=== PATIENT | male | born 1975 | race Caucasian/White ===

== ENCOUNTER 2018-07-22 07:28 | Day surgery (SDC) | payer OTHER ==
--- NOTE | 2018-07-18 14:59 | RAD REPORT ---
EXAM DESCRIPTION: RAD - Chest Pa And Lat (2 Views) - 07/18/2018 2:53 pm CLINICAL HISTORY: preop Chest pain. COMPARISON: Chest Single View dated 05/13/2017 FINDINGS: The lungs are clear. The heart is normal in size. No displaced fractures. IMPRESSION: No acute or concerning finding suspected.
[2018-07-18 15:36] LABS: BUN Blood Urea Nitrogen 12 mg/dL (7-18); Bicarbonate 28 mmol/L (21-32); Glucose Level 251 mg/dL (74-106); Potassium 4.1 mmol/L (3.5-5.1); Sodium Level 135 mmol/L (136-145)
[2018-07-18 15:52] LABS: Absolute Monocytes 0.7 K/uL (0.1-1.3); Absolute Neutrophil 7.1 K/uL (1.8-8.0); Basophils % 1.2 % (0-1.3); Eosinophils % 2.4 % (0-4.4); Hematocrit 45.3 % (39.6-49.0); Lymphocytes % 19.3 % (15.3-44.8); MCH 29.6 pg (27.0-35.0); Monocytes % 7.2 % (3.3-12.3); RBC Red Blood Cell Count 5.27 M/uL (4.33-5.43)
--- NOTE | 2018-07-18 17:09 | EKG ---
Test Date: 2018-07-18 Test Time: 14:57:23 Ice Skater: [place] MEASUREMENT RESULTS: Intervals: Rate: 84 ND: 150 QRSD: 88 QT: 350 QTc: 413 [place]: P: 63 ND: 150 QRS: 14 T: 43 INTERPRETIVE STATEMENTS: Normal sinus rhythm Normal ECG Compared to ECG 05/13/2017 10:19:32 No significant changes Electronically Signed On 07-18-18 17:08:54 ELEMENTARY EDUCATION TUTOR by Dheeraj Ferrera
[2018-07-22] MEDS ORDERED: NA CHLORIDE 0.9% 1,000 ML ONE (07:48)
[2018-07-22] MEDS ORDERED: PROPOFOL 200 MG/20 ML VIAL IV ONE ×2 (08:35→10:06)
[2018-07-22] MEDS ORDERED: FENTANYL CITR 100 MCG/2 ML ONE ×2 (08:35→08:57)
[2018-07-22] MEDS ORDERED: MIDAZOLAM HCL 2 MG/2 ML INJ ONE ×2 (08:35→10:13)
[2018-07-22] MEDS ORDERED: LIDOCAINE 2% MPF 5 ML VIAL ONE ×2 (08:36→08:53)
[2018-07-22] MEDS ORDERED: GLYCOPYRROLATE 0.2 MG/ML SYR ONE ×2 (08:39)
[2018-07-22] MEDS ORDERED: NEOSTIGMINE 1 MG/ML -5 ML SYRINGE ONE (08:40)
[2018-07-22] MEDS ORDERED: ROCURONIUM 50 MG/5 ML VIAL IV ONE (08:42)
[2018-07-22] MEDS ORDERED: LIDOCAINE JELLY 2%- 5 ML TUBE ONE (08:52)
[2018-07-22] MEDS ORDERED: MEPERIDINE HCL 25 MG/0.5 ML ONE ×2 (09:26→10:13)
[2018-07-22] MEDS: NA CHLORIDE 0.9% 1,000 ML ONE ×2 (09:32→09:36)
--- NOTE | 2018-07-22 10:02 | P.BOP ---
Preoperative diagnosis: incarcerated incisional ventral hernia, morbid obesity Postoperative diagnosis: same Primary procedure: open repair of incarcerated incisional ventral hernia with mesh Division Traffic Superintendent: Sidra Perea (Tyra) Estimated blood loss: <20cc Specimen: gb Findings: as above, incarcerated omentum Anesthesia: General Complications: None Implants: ventralex mesh Transferred to: Recovery Room Condition: Good
[2018-07-22] MEDS ORDERED: SUCCINYLCHOLINE 20 MG/ML (10 ML) IV ONE (11:20)
[2018-07-22] MEDS ORDERED: HYDROCODONE/APAP 10/325 TAB ONE (11:29)
--- OUTSIDE RECORDS SUMMARY | 2018-07-22 12:54 | XMS REPORT ---
:1975 [facility] Address [address] [place] [address] Dr. Carvajal [address] [place] [id number] Care Team Providers Name Role Phone ZAN WHITLEY M. Unavailable Unavailable Problems This patient has no known problems. Allergies, Adverse Reactions, Alerts This patient has no known allergies or adverse reactions. Medications This patient has no known medications. Results Test Description Test Time Test Comments Text Results Atomic Results Result Comments MR, MRA, BRAIN, 2017-05-14 Reason for FINAL REPORT PATIENT WITHOUT CONTRAST 15:33:00 exam:->StrokeWhat is the ID: [id number] MRA head patient's sedation and neck without requirement?->No Sedation contrast INDICATION: Stroke TECHNIQUE: 2-D and 3-D [id number] MRA images of the intra- and extracranial carotid and vertebral artery circulations were obtained, from which maximal intensity projection reconstructions were generated. COMPARISON: None available FINDINGS: MRA neck:There is carotid bifurcation atherosclerosis with mild left cervical ICA origin stenosis of approximately 20%. No hemodynamically significant ICA stenosis is seen by NASCET criteria. The common carotid arteries demonstrate no significant stenosis. The vertebral artery origins are suboptimally depicted due to artifacts. Otherwise, there is antegrade flow in the cervical vertebral arteries without flow limitation. There are nonspecific enlarged bilateral cervical anterior and posterior triangle lymph nodes. Reactive changes are possible but other etiologies of lymphoid tissue enlargement cannot be excluded. MRA [place]:There is origin of the right posterior cerebral artery. There is no major branch occlusion or significant stenosis in the [place] vessels. There is infundibular origin of the left inferolateral trunk. IMPRESSION: 1. Carotid bifurcation atherosclerosis with mild left cervical ICA origin stenosis. 2. Suboptimally depicted vertebral artery origins. Otherwise, no significant vertebral artery stenosis seen. 3. No [place] major branch occlusion or significant stenosis. 4. Nonspecific enlarged cervical lymph nodes. Signed: Michael Lawrence MDReport Verified Date/Time: 05/14/2017 15:33:26 Reading Location: [address] Neuro Reading Room , MRA, NECK, 2017-05-14 FINAL REPORT PATIENT WITHOUT IV 15:33:00 ID: [id number] MRA head CONTRAST and neck without contrast INDICATION: Stroke TECHNIQUE: 2-D and 3-D [id number] MRA images of the intra- and extracranial carotid and vertebral artery circulations were obtained, from which maximal intensity projection reconstructions were generated. COMPARISON: None available FINDINGS: MRA neck:There is carotid bifurcation atherosclerosis with mild left cervical ICA origin stenosis of approximately 20%. No hemodynamically significant ICA stenosis is seen by NASCET criteria. The common carotid arteries demonstrate no significant stenosis. The vertebral artery origins are suboptimally depicted due to artifacts. Otherwise, there is antegrade flow in the cervical vertebral arteries without flow limitation. There are nonspecific enlarged bilateral cervical anterior and posterior triangle lymph nodes. Reactive changes are possible but other etiologies of lymphoid tissue enlargement cannot be excluded. MRA [place]:There is origin of the right posterior cerebral artery. There is no major branch occlusion or significant stenosis in the [place] vessels. There is infundibular origin of the left inferolateral trunk. IMPRESSION: 1. Carotid bifurcation atherosclerosis with mild left cervical ICA origin stenosis. 2. Suboptimally depicted vertebral artery origins. Otherwise, no significant vertebral artery stenosis seen. 3. No [place] major branch occlusion or significant stenosis. 4. Nonspecific enlarged cervical lymph nodes. Signed: Michael Lawrence MDReport Verified Date/Time: 05/14/2017 15:33:26 Reading Location: [address] Neuro Reading Room , BRAIN, 2017-05-14 Reason for FINAL REPORT PATIENT WITHOUT CONTRAST 15:28:00 exam:->StrokeLEFT ANT ID: [id number] MRI AURICLE EDEMA/MASSWhat is brain Comparison: the patient's sedation None Reason for exam: requirement?->No StrokeStroke Sedation Discussion: Multiplanar MR imaging the brain was performed using T1, T2, FLAIR, FFE, diffusion, and ADC map imaging. There are no intracranial hematomas, mass effect, hydrocephalus, shift, or extra-axial collections. There is T2 hyperintense signal heterogeneity involving the perirolandic suprasylvian region on the left. Hyperintensity on the DWI sequence is noted but without definitive diffusion restriction on ADC map. T2 shine through is presumed. There are no areas of abnormal diffusion restriction. Flow-voids are seen in the basilar and internal carotid arteries as well as in the large posterior dural sinuses. The pineal, sella, and craniocervical junction regions are unremarkable. The visualized orbital contents, paranasal sinuses, skullbase and surrounding soft tissues are unremarkable. . Impressions: Left-sided perirolandic patchy signal alterations, presumably ischemic in nature perhaps subacute in timeframe. If neurological signs, symptoms, and history suggests nonischemic disease, consider current postcontrast evaluation and/or MR imaging follow-up in 3-6 months. 2. No specific evidence of diffusion restricted event. Signed: Ronnie Alatorre Verified Date/Time: 05/14/2017 15:28:54 Reading Location: [facility] C0W Consult Reading Room -GLUCOSE METER 2017-05-14 13:32:00 Test Item Value Reference Range Comments POC-GLUCOSE METER (Introvision R&D) (test 152 mg/dL 70-110 TESTED AT [facility] [address] [facility] mfds=6979) [facility] [address] LIPID [id number] 05:04:00 Test Item Value Reference Range Comments TRIGLYCERIDES (BA InsightAKER) (test rjeg=497) 77 mg/dL CHOLESTEROL ([employer]&D) (test jcla=832) 153 mg/dL HDL CHOLESTEROL ([employer]&D) (test abss=605) 48 mg/dL LDL CHOLESTEROL CALCULATED ([employer]D) (test 90 mg/dL uvvu=468) Triglyceride Reference Range: Low Risk <150 Borderline 150- 199 High Risk 200-499 Very High Risk >=500Cholesterol Reference Range: Low Risk <200 Borderline 200-239 High Risk > 240HDL Cholesterol Reference Range: Low Risk >=60 High Risk <40LDL Cholesterol Reference Range: Optimal <100 Near Optimal 100-129 Borderline 130-159 High 160-189 Very High >=190 FastingBASIC METABOLIC [id number] 05:04:00 Test Item Value Reference Range Comments SODIUM (BEAKER) (test 135 meq/L 136-145 tffx=037) POTASSIUM (BEAKER) (test 4.7 meq/L 3.5-5.1 utsg=068) CHLORIDE (BEAKER) (test 102 meq/L 98-107 vryo=596) CO2 (BEAKER) (test 27 meq/L 22-29 xvjw=763) BLOOD UREA NITROGEN 12 mg/dL 7-21 (BEAKER) (test aizc=461) CREATININE (BEAKER) (test 0.88 mg/dL 0.57-1.25 dcwq=409) GLUCOSE RANDOM (BEAKER) 253 mg/dL 70-105 (test tpcq=459) CALCIUM (BEAKER) (test 8.9 mg/dL 8.4-10.2 qpmb=753) EGFR (BEAKER) (test 96 mL/min/1.73 sq m ESTIMATED GFR IS NOT zxfl=4934) ACCURATE CREATININE CLEARANCE IN PREDICTING GLOMERULAR FILTRATION RATE. ESTIMATED GFR IS NOT APPLICABLE FOR DIALYSIS PATIENTS. [id number] 04:38:00 Test Item Value Reference Range Comments RPR SCREEN (BEAKER) (test euxl=945) Nonreactive Nonreactive POCT-GLUCOSE [id number] 21:28:00 Test Item Value Reference Range Comments POC-GLUCOSE METER (BEAKER) 146 mg/dL 70-110 TESTED AT [facility] [address] [facility] (test ckbc=1021) [facility] [address] POCT-GLUCOSE [id number] 20:33:00 Test Item Value Reference Range Comments POC-GLUCOSE METER (BEAKER) 265 mg/dL 70-110 TESTED AT [place] [id number] [facility] (test ifvg=9796) [facility] [address] TSH/FREE T4 IF [id number] 17:24:00 Test Item Value Reference Range Comments THYROID STIMULATING HORMONE (BEAKER) (test 0.36 uIU/mL 0.35-4.94 gdce=342) CBC W/PLT COUNT & AUTO [id number] 17:01:00 Test Item Value Reference Range Comments WHITE BLOOD CELL COUNT (BEAKER) (test rifx=950) 15.0 K/ L 3.5-10.5 RED BLOOD CELL COUNT (BEAKER) (test hgww=533) 5.16 M/ L 4.63-6.08 HEMOGLOBIN (BEAKER) (test iiam=377) 14.5 GM/DL 13.7-17.5 HEMATOCRIT (BEAKER) (test ttyl=753) 45.1 % 40.1-51.0 MEAN CORPUSCULAR VOLUME (BEAKER) (test pfor=406) 87.4 fL 79.0-92.2 MEAN CORPUSCULAR HEMOGLOBIN (BEAKER) (test 28.1 pg 25.7-32.2 tldq=746) MEAN CORPUSCULAR HEMOGLOBIN CONC (BEAKER) (test 32.2 GM/DL 32.3-36.5 duwf=044) RED CELL DISTRIBUTION WIDTH (BEAKER) (test 13.6 % 11.6-14.4 xxzc=135) PLATELET COUNT (BEAKER) (test hrgf=483) 310 K/CU MM 150-450 MEAN PLATELET VOLUME (BEAKER) (test difb=415) 11.7 fL 9.4-12.4 NUCLEATED RED BLOOD CELLS (BEAKER) (test 0 /100 WBC 0-0 qdgh=973) NEUTROPHILS RELATIVE PERCENT (BEAKER) (test 80 % jesm=265) LYMPHOCYTES RELATIVE PERCENT (BEAKER) (test 13 % wqjr=495) MONOCYTES RELATIVE PERCENT (BEAKER) (test 6 % vsdu=056) EOSINOPHILS RELATIVE PERCENT (BEAKER) (test 0 % vglh=938) BASOPHILS RELATIVE PERCENT (BEAKER) (test 0 % taym=395) NEUTROPHILS ABSOLUTE COUNT (BEAKER) (test 12.02 K/ L 1.78-5.38 bexm=633) LYMPHOCYTES ABSOLUTE COUNT (BEAKER) (test 1.96 K/ L 1.32-3.57 vdtz=988) MONOCYTES ABSOLUTE COUNT (BEAKER) (test 0.91 K/ L 0.30-0.82 zxih=929) EOSINOPHILS ABSOLUTE COUNT (BEAKER) (test 0.03 K/ L 0.04-0.54 sqzl=319) BASOPHILS ABSOLUTE COUNT (BEAKER) (test 0.02 K/ L 0.01-0.08 kpvn=491) IMMATURE GRANULOCYTES-RELATIVE PERCENT (BEAKER) 0 % 0-1 (test haxe=2466)
--- OUTSIDE RECORDS SUMMARY | 2018-07-22 12:54 | XMS REPORT | Clinical Summary ---
:[address] [facility] Address [address] [place] [address] Care Team Providers Name Role Phone Catalina Primary Care Provider Allergies Active Allergy Reactions Severity Noted Date Comments Adhesive Tape Rash Low 05/13/2017 Medications Medication Sig Dispensed Refills Start Date End Date Status metFORMIN Take 1,000 mg by 0 Active (GLUCOPHAGE) 1000 mouth 2 (two) times MG daily with breakfast tabletIndications: and dinner. type 2 diabetes mellitus lisinopril Take 40 mg by mouth 0 Active (PRINIVIL,ZESTRIL) daily. 40 MG tabletIndications: hypertension insulin 70/30, Inject 30 Units 0 Active insulin subcutaneously daily NPH-insulin with breakfast. regular, (HUMULIN 70/30,NOVOLIN 70/30) 100 unit/mL (70-30) injectionIndicatio ns: type 1 diabetes mellitus insulin 70/30, Inject 15 Units 0 Active insulin subcutaneously daily NPH-insulin with dinner. regular, (HUMULIN 70/30,NOVOLIN 70/30) 100 unit/mL (70-30) injection aspirin 81 MG Take 1 tablet (81 mg 90 tablet 0 05/14/2017 05/14/2018 chewable tablet total) by mouth daily. atorvastatin Take 1 tablet (40 mg 90 tablet 0 05/14/2017 05/14/2018 (LIPITOR) 40 MG total) by mouth tablet nightly. Active Problems Problem Noted Date CVA (cerebral vascular accident) 05/13/2017 Slurred speech 05/13/2017 Diabetes mellitus type 1 05/13/2017 Essential hypertension 05/13/2017 Social History Tobacco Use Types Packs/Day Years Used Date Never Smoker Smokeless Tobacco: Never Used Sex Assigned at Date Recorded Not on file Job Start Date Occupation Industry Not on file Not on file Not on file Travel History Travel Start Travel End No recent travel history available. Last Filed Vital Signs Not on file Plan of Treatment Not on file Results Not on fileafter 07/21/2017 Insurance Payer Benefit Plan / Group Subscriber ID Type Phone Address [employer] - [employer] HMO POS QPOS xxxxxxxxxx HMO/POS Advance Directives For more information, please contact:[address] [phone] Code Status Date Activated Date Inactivated Comments Full Code 05/13/2017 3:45 PM 05/14/2017 6:59 PM This code status was determined by: Patient
--- NOTE | 2018-07-24 00:12 | OP ---
Date of Procedure: 07/22/2018 Surgeon: Britton Delgado MD Senior Maintenance Machinist: CATHY Flowers. Preoperative Diagnoses: Incarcerated incisional ventral hernia, morbid obesity. Postoperative Diagnoses: Incarcerated incisional ventral hernia, morbid obesity. Procedure: Open repair of incarcerated incisional ventral hernia with mesh. Estimated Blood Loss: Less than 20 cc. Specimen: Gallbladder. Finding: As above, incarcerated omentum. Anesthesia: General plus local. Complications: None. Implant: A Ventralex mesh. Indications: This is the case of a 43-year-old patient, comes to us with a tender incarcerated ventr al hernia. The patient has been trying to lose weight, avoiding any heavy lifting, feels this is bec oming tender and bigger, so he wants that repaired. Benefits, alternatives, and risks of repair full y explained which include but are not limited to infection, bleeding, damage to adjacent structures, anesthesia complication, recurrence, [place], and even . He also understands this may not relieve hi s symptoms. He might need more than one surgical intervention. He also was explained we might have to use mesh in that region. Pros and cons of mesh use were explained to him. All the questions were answered to his satisfaction, and he did allow us to use mesh. Description Of Procedure: The patient was brought to the operating room, placed in supine position. Anesthesia was given without complication. Abdominal area was prepped and draped in a sterile fashi on. Marcaine 0.5% injected for local anesthetic, followed by sharp incision of the skin where the pa tient pinpoint that we marked in the holding room. Incision was carried down to the fascia and indee d we noticed the hernia sac present. The hernia sac was just released from the entire subcutaneous t issue. This hernia sac looked like its tracking and tunneling in between the layers of the abdominal wall. So, we were able to looked at that area, bring this hernia sac out, we noticed incarcerated o mentum. Some of that incarcerated omentum was attached to the hernia sac with adhesions, so we caref ully removed those adhesions under direct visualization, no bleeding. The omentum was retracted into the abdominal cavity after fully inspecting and seems to be viable with no bleeding. The hernia sac was removed. We checked the area of the right lower quadrant previous incision. We do not feel any hernia at least palpated at this moment. We think we can close this defect, but we need a mesh to b e able to approximate that defect and diminish the chance of recurrence. We selected a Ventralex mes h, placed intraperitoneally, secured to the fascia with a #1 Prolene in multiple locations to avoid a ny bowel to go in between. Once we have that at 12, 9, 6, and 3 o'clock too, then we proceeded to pu t in between stitches and then after that, also we made sure that the straps were removed and then we closed approximate the fascia with #2 nylon in running fashion. The area was irrigated. Subcutaneo us incision was closed with 3-0 chromic. Since we have the space over the area that the hernia sac c reated, so we put some stitches to minimize third space in that area and then closed the skin in a palacios bcuticular fashion with 3-0 chromic and a Steri-Strip on top. Sponge count and instrument counts wer e correct. The patient tolerated the procedure well. The patient was sent to recovery in stable con dition. Disposition: Home. Activity: As tolerated. No heavy lifting. Followup: Follow up in my office in 1 week. Call for appointment on [phone]. Keep the area dry fo r 48 hours, then may shower. Keep Steri-Strips intact. Medications: See orders. THOMAS/SAMANTHA Voice ID: [id number] Report ID: [id number]
== END 2018-07-22 12:25 | disposition home or self-care (01) ==
LOC: OR 07:28
PROVIDERS: ATTEND Surgery
PROC: 0WUF0JZ Supplement Abdominal Wall with Synthetic Substitute, Open Approach (ICD-10-PCS; principal; 2018-07-22 08:30)
DX: K43.0 Incisional hernia with obstruction, without gangrene (principal); E11.9 Type 2 diabetes mellitus without complications; I10 Essential (primary) hypertension; K21.9 Gastro-esophageal reflux disease without esophagitis; Z79.4 Long term (current) use of insulin; Z90.49 Acquired absence of other specified parts of digestive tract; Z91.048 Other nonmedicinal substance allergy status; Z82.49 Family history of ischemic heart disease and other diseases of the circulatory system; Z83.3 Family history of diabetes mellitus
CPT/HCPCS: 36415; 71046; 80048; 82962; 85025; 88302; 93005; J0330; J2175; J2250; J2704; J2710; J3010; J7030